=== PATIENT | male | born 1975 | race African-American/Black ===

== ENCOUNTER 2017-03-07 14:51 | Inpatient (IN) | payer OTHER ==
[~2017-03-07] VITALS: Ht 182.9 cm; Wt 81.2 kg
--- NOTE | ~2017-03-07 | O ---
[facility] [place] [address] OPERATIVE REPORT Name: CHAPINCITO GRANADOS Room #: 403-P [facility] M.R.#: [id number] Admission: 03/07/17 Attend Phys: Oren Coates MD Discharge: Date of : 75 Report #: [id number] THIS REPORT FOR: //name// CC: [facility] physician/PCP Oren Coates DATE OF SERVICE: 03/09/2017 PREOPERATIVE DIAGNOSIS: Left distal 5-mm ureteral stone. POSTOPERATIVE DIAGNOSIS: Left distal 5-mm ureteral stone. SURGEON: Abdoul Pedroza M.D. CUSTOMER ACQUISITION MANAGER: None. ANESTHESIA: General. FLUIDS: Please see anesthesia note. ESTIMATED BLOOD LOSS: None. COMPLICATIONS: None. POSTPROCEDURE STATUS: Stable. SURGERY: 1. Cystoscopy. 2. Left retrograde pyelogram. 3. Left ureteroscopy with basket extraction of the stone. 4. Left ureteral stent placement, 4.5 x 26 [place]. FINDINGS: The patient had a left yellow distal 5-mm ureteral stone. OPERATIVE NOTE IN DETAIL: After informed consent, the patient was taken to the operating room and placed in the dorsal lithotomy position. He was prepped and draped in sterile fashion. He was given general endotracheal anesthesia as well as preoperative antibiotics. A strap making machine operator fluoroscopy film was performed. No obvious radiopaque density was noted. A 21-[place] scope with a 30-degree lens was carefully placed in the patient's meatus and glided in the bladder. The prostate was nonobstructing. The bladder was inspected and found to be free of tumor, stones or lesions. The left ureteral orifice was cannulated with a 5-[place] open-ended catheter. The left ureteral orifice was very small. A retrograde pyelogram was performed, showing a filling defect at the distal ureter with mild proximal hydroureter and hydronephrosis. A flexible guidewire was placed through the open-ended catheter up in the kidney. A second sensor [facility] [address] [place] [address] OPERATIVE REPORT Name: CHAPINCITO GRANADOS Room #: 403-[facility] .R.#: [id number] Admission: 03/07/17 Attend Phys: Oren Coates MD Discharge: Date of : 75 Report #: [id number] wire was placed as well. One was used as a working wire, one was used as a safety wire. Based upon the size of the ureteral orifice, I elected to dilate the ureteral orifice with a 12-14 access sheath. The distal ureter was dilated up to the level of the stone without complication. A semirigid ureteroscope was then deployed, advanced alongside the wire. Upon entering the distal ureter, approximately 3 cm from the ureteral orifice proximally, was a yellow 5-mm ureteral stone. A Zero Tip nitinol basket was used to grasp the stone. It was gently removed without any complication and sent off for pathologic specimen. At the end, the ureter was inspected and found to be free of any injury. No more stone was noted. The cystoscope was backloaded over the wire. A 4.5 x 26 [place] stent was advanced over the wire and good curl was seen in the kidney on the left side. The stent was deployed and a good curl was seen in the bladder. The bladder was drained. The patient was awokened and transferred to the recovery room in a stable condition. All counts were correct. There were no complications. The patient tolerated the procedure well. By: [id number] Abdoul Pedroza MD /nt
[~2017-03-07 14:51] MED LIST: BACTRIM DS TAB1 EACH PO; COUMADIN 5 MG TA5 M1 PO; DOXYCYCLINE 10100 MG PO; ENOXAPARIN80 MG/0.1 SUBQ; FLOMAX0.4 MG PO; NOHOMEMEDICATIONS; NORCO 5-325 TA1 EACH PO; VICODIN 5-5001 EACH PO; ZOFRAN4 MG PO
[2017-03-07 14:53] VITALS: BP 139/85
[2017-03-07 15:12] LABS: HEMATOCRIT 44.2 % (42.0-52.0); HEMOGLOBIN 15.1 gm/dL (14.0-18.0); MCH 32.5 pg (26.0-34.0); MCHC 34.2 g/dL (28.0-37.0); MCV 95.1 fL (80.0-100.0); PLATELET COUNT 236 thou/uL (150-400); RBC 4.65 mil/uL (4.50-6.00); WBC 11.6 thou/uL (4.0-11.0)
[2017-03-07 15:18] LABS: URINE BILIRUBIN NEGATIVE (Negative); URINE BLOOD 2+ (Negative); URINE COLOR YELLOW; URINE GLUCOSE-RANDOM* NEGATIVE (Negative); URINE KETONES NEGATIVE (Negative); URINE NITRITE NEGATIVE (Negative); URINE PROTEIN (DIPSTICK) NEGATIVE (Negative); URINE UROBILINOGEN 0.2 E.U./dl (0.2-1.0)
[2017-03-07 15:19] LABS: CALCIUM 9.6 mg/dL (8.5-10.1); CREATININE 1.5 mg/dL (0.7-1.3)
[2017-03-07 15:26] LABS: TOTAL BILIRUBIN 0.5 mg/dL (<0.1-1.0); TOTAL PROTEIN 7.7 g/dL (6.4-8.2)
[2017-03-07 15:29] LABS: BACTERIA 1-9 Few /HPF (None Seen); CASTS None Seen /LPF (None Seen); CRYSTALS None Seen /LPF (None Seen); SQUAMOUS None Seen /LPF (0-3); URINE RBC None Seen /HPF (0-2); URINE WBC 0-5 Rare /HPF (0-5)
[2017-03-07 15:32] LABS: MANUAL DIFF YES
[2017-03-07 15:54] LABS: ABSOLUTE NEUTROPHILS 9.9 thou/uL (1.4-8.2); ANISOCYTOSIS 1+; TOTAL CELL COUNT 100
[2017-03-07 20:51] VITALS: BP 133/72
[2017-03-07 21:03] VITALS: BP 128/78
[2017-03-08 00:12] VITALS: BP 112/66
[2017-03-08 03:45] VITALS: BP 148/97
[2017-03-08 04:35] LABS: HEMATOCRIT 39.3 % (42.0-52.0); HEMOGLOBIN 13.4 gm/dL (14.0-18.0); MCH 32.4 pg (26.0-34.0); MCV 95.1 fL (80.0-100.0); RBC 4.13 mil/uL (4.50-6.00); RDW 13.1 % (10.5-14.5); WBC 8.1 thou/uL (4.0-11.0)
[2017-03-08 04:46] LABS: CALCIUM 8.2 mg/dL (8.5-10.1); CREATININE 1.5 mg/dL (0.7-1.3); POTASSIUM 4.4 mmol/L (3.5-5.1)
[2017-03-08 08:00] VITALS: BP 140/91
[2017-03-08 20:00] VITALS: BP 133/82
[2017-03-09] VITALS (8 sets, daily range): BP systolic 111–133; BP diastolic 56–89
[2017-03-09 06:32] LABS: HEMATOCRIT 39.2 % (42.0-52.0); MCH 31.9 pg (26.0-34.0); MCHC 33.2 g/dL (28.0-37.0); RBC 4.08 mil/uL (4.50-6.00); RDW 13.1 % (10.5-14.5); WBC 9.6 thou/uL (4.0-11.0)
[2017-03-09 06:48] LABS: CALCIUM 8.5 mg/dL (8.5-10.1); CREATININE 1.3 mg/dL (0.7-1.3); POTASSIUM 4.4 mmol/L (3.5-5.1)
[2017-03-10 04:00] VITALS: BP 130/86
[2017-03-10 06:06] LABS: HEMATOCRIT 39.9 % (42.0-52.0); HEMOGLOBIN 13.3 gm/dL (14.0-18.0); MCH 31.6 pg (26.0-34.0); MCHC 33.3 g/dL (28.0-37.0); RBC 4.2 mil/uL (4.50-6.00); RDW 12.9 % (10.5-14.5); WBC 11.6 thou/uL (4.0-11.0)
[2017-03-10 06:15] LABS: CALCIUM 8.8 mg/dL (8.5-10.1); POTASSIUM 4.5 mmol/L (3.5-5.1)
[2017-03-10 07:16] VITALS: BP 135/91
[2017-03-10 09:55] VITALS: BP 135/91
[2017-03-10] MEDS ORDERED: NORCO 5-325 TA1 EACH PO (11:31)
[2017-03-10] MEDS ORDERED: FLOMAX0.4 MG PO (11:31)
== END 2017-03-10 12:20 | disposition home or self-care (01) | DRG 670 ==
LOC: ER 14:51 → 4N 15:21 → EROBS 15:21 → ICU 20:52 → 4N 03-08 19:24
PROVIDERS: Hospitalist; Internal Medicine; Nurse Practitioner Family
PROC: 0T778DZ Dilation of Left Ureter with Intraluminal Device, Via Natural or Artificial Opening Endoscopic (ICD-10-PCS; principal; 2017-03-09)
PROC: 0TC78ZZ Extirpation of Matter from Left Ureter, Via Natural or Artificial Opening Endoscopic (ICD-10-PCS; principal; 2017-03-09)
PROC: BT1F1ZZ Fluoroscopy of Left Kidney, Ureter and Bladder using Low Osmolar Contrast (ICD-10-PCS; principal; 2017-03-09)
DX: N20.1 Calculus of ureter (principal); F17.210 Nicotine dependence, cigarettes, uncomplicated; K59.00 Constipation, unspecified; Z79.899 Other long term (current) drug therapy; Z23 Encounter for immunization
CPT/HCPCS: 10091; 10196; 50010; 50101; 50164; 50478; 51620; 51776; 53331; 56674; 56815; 62110; 62900; 70005